=== PATIENT | male | born 1950 | race Caucasian/White ===

== ENCOUNTER → 2023-10-15 | Outpatient (CLI) | payer MEDICARE, OTHER ==
--- NOTE | 2023-10-15 09:46 | Diagnostic Imaging Report ---
CLINICAL HISTORY: Bilateral hand pain. COMPARISON: None. TECHNIQUE: 6 views of the bilateral hands. FINDINGS: There is no acute fracture or dislocation of the bilateral hands. Alignment is anatomic. Degenerative changes are present in the bilateral radiocarpal joints and intercarpal joints. No focal osseous lesions. IMPRESSION: 1. No acute fracture or dislocation in the bilateral hands. 2. 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 Dictated by: Dictated on workstation # [id number]
== END ==
LOC: ORTHO 08:14
PROVIDERS: ATTEND Orthopaedic Surgery
DX: M19.032 Primary osteoarthritis, left wrist (principal); M19.031 Primary osteoarthritis, right wrist
CPT/HCPCS: 20551; 73130; G0463; 99203